=== PATIENT | female | born 1940 | race Caucasian/White ===

== ENCOUNTER 2020-03-21 14:33 | Emergency (ER) | payer MEDICARE, BC ==
--- NOTE | 2020-03-21 15:20 | ER Document Report ---
ED General - General Chief Complaint: Shortness Of Breath Stated Complaint: SHORTNESS OF BREATH Time Seen by Provider: 03/21/20 14:40 Notes: HPI: 79-year-old female with past medical history including non-Hodgkin's lymphoma and myelodysplastic disease followed at [facility] recently discharged from [facility] with a pericardial window performed on March 09 who states some worsening shortness of breath over the last few m onths with some decreased energy and appetite over the last 2 to 3 days. No fevers, vomiting, abdominal pain, chest pain, calf pain or leg swelling. She is on baseline oxygen. ROS: See HPI All other review of systems reviewed and otherwise negative Reviewed vital signs and nursing note as charted by RN. PHYSICAL EXAM: CONSTITUTIONAL: Alert and oriented and responds appropriately to questions. Well-appearing; well-nourished HEAD: Normocephalic; atraumatic EYES: PERRL; Conjunctivae clear, sclerae non-icteric ENT: Normal nose; no rhinorrhea; moist mucous membranes; pharynx without lesions noted NECK: Supple without meningismus; non-tender; no cervical lymphadenopathy, no masses CARD: Regular rate and rhythm; no murmurs; symmetric distal pulses RESP: Normal chest excursion without splinting or tachypnea; decreased breath sounds to the left lung field without any obvious wheezing or rhonchi appreciated ABD/GI: Normal bowel sounds; non-distended; soft, non-tender; no palpable organomegaly or masses BACK: The back appears normal and is non-tender to palpation EXT: Normal ROM in all joints; non-tender to palpation; no edema SKIN: No acute lesions noted NEURO: CN 2-12 intact; 5/5 bilateral upper and lower extremity strength with sensation intact to light touch PSYCH: The patient's mood and manner are appropriate. Grooming and personal hygiene are appropriate. - Related Data Allergies/Adverse Reactions: ampicillin Allergy (Verified 03/21/20 15:27) Past Medical History - Social History Smoking Status: Unknown if Ever Smoked Family History: Reviewed & Not Pertinent Physical Exam - Vital signs Vitals: Pulse Ox 96 03/21/20 15:15 Course - Re-evaluation Re-evalutation: Given the above history and physical examination, we did order a portable x-ray of the chest showing almost complete whiteout of the left lung. Blood pressure and oxygenation are stable on nasal cannula. I will proceed with a CTA as well as a cardiac evaluation. Patient has had no fevers, calf pain or leg swelling. She denies any pain to the chest or abdomen. Concern about metastatic disease causing a neoplastic effusion. 03/21/20 15:24 EKG shows a heart of 94, normal sinus rhythm, left anterior fascicular block, incomplete left bundle branch block with inverted T waves in leads I, aVL, and V2. no old EKG to compare. 03/21/20 15:58 White blood cell count is over 100,000. I have called [facility] to help facilitate transfer. That is where her oncologist is located and that is where her recent pericardial effusion has been performed. She does see [facility] secondary to the 2 different types of cancers but only sees them twice a year. That is not her active oncologist. 03/21/20 16:18 I have called [facility]. They are currently on diversion. I am trying to get 1 of the providers to call me back to discuss the patient's hospital course. I have not yet heard. I did call and speak to a local oncologist here. He states that he would like the patient ideally to be replaced that has the ability for plasmapheresis given the complicated cancer history. He states if we are not able to find an acceptance at [facility] or [facility] he is happy to have the hospitalist consult him here. We do have pulmonology motion picture cameraman. Radiology is able to drain the patient's lung through interventional radiology if needed. 03/21/20 16:24 I did call [facility] to attempt to have the patient transferred to that location. They did state that the patient's last white blood cell count was in July 16 showing a white blood cell count of 37,000. 03/21/20 17:12 I spoke to the oncology fellow at [facility]. [facility] states they are attempting to make a bed. She has had me add on multiple laboratory values which I placed in the computer. No change in exam. Patient has yet to have a CT scan given the colon volume of the emergency department. 03/21/20 18:04 I have spoken to the hematology/oncology fellow once again. She has asked me to order a repeat 8-hour BMP, magnesium, phosphorus, LDH, and coags. She is also had me start hydroxyurea and allopurinol. They have accepted the patient for transfer. Patient has just returned from CT scan. - Vital Signs Vital signs: Temp Pulse Resp BP Pulse Ox 96 03/21/20 15:15 - Laboratory Result Diagrams: 03/21/20 15:00 03/21/20 15:00 Laboratory results interpreted by me: 03/21/20 03/21/20 03/21/20 15:00 15:00 15:00 WBC 126.1 H* RBC 2.62 L Hgb 9.0 L Hct 28.5 L MCV 109 H MCH 34.6 H MCHC 31.7 L RDW 19.2 H Band Neutrophils % 7 H Lymphocytes % (Manual) 10 L Monocytes % (Manual) 2 L Myelocytes % 2 H Immature Leukocytes % 7 H Abs Neuts (Manual) 100.9 H Abs Lymphs (Manual) 12.6 H Abs Monocytes (Manual) 2.5 H Absolute Eos (Manual) 1.3 H Fibrinogen Sodium 131.9 L BUN 44 H Uric Acid 9.9 H Direct Bilirubin 0.6 H Alkaline Phosphatase 448 H Lactate Dehydrogenase 337 H Albumin 3.1 L 03/21/20 15:00 WBC RBC Hgb Hct MCV MCH MCHC RDW Band Neutrophils % Lymphocytes % (Manual) Monocytes % (Manual) Myelocytes % Immature Leukocytes % Abs Neuts (Manual) Abs Lymphs (Manual) Abs Monocytes (Manual) Absolute Eos (Manual) Fibrinogen 504 H Sodium BUN Uric Acid Direct Bilirubin Alkaline Phosphatase Lactate Dehydrogenase Albumin Critical Care Note - Critical Care Note Total time excluding time spent on procedures (mins): 35 Discharge - Discharge Clinical Impression: Pleural effusion, left, Hypoxia, Neutrophilic leukocytosis Condition: Serious Disposition: [place]
--- NOTE | 2020-03-21 15:20 | RADIOLOGY REPORT (SQ) ---
EXAM DESCRIPTION: CHEST SINGLE VIEW IMAGES COMPLETED DATE/TIME: 03/21/2020 3:04 pm REASON FOR STUDY: bed 1 difficulty breathing COMPARISON: None. EXAM PARAMETERS: NUMBER OF VIEWS: One view. TECHNIQUE: Single frontal radiographic view of the chest acquired. RADIATION DOSE: NA LIMITATIONS: None. FINDINGS: LUNGS AND PLEURA: Very large left pleural effusion. Compressive atelectasis of the left l sepideh. Right lung is clear. MEDIASTINUM AND HILAR STRUCTURES: No masses. Contour normal. HEART AND VASCULAR STRUCTURES: Heart size indeterminate. BONES: Scoliosis. HARDWARE: None in the chest. OTHER: No other significant finding. IMPRESSION: Very large left pleural effusion with compressive atelectasis the left lung. TECHNICAL DOCUMENTATION: JOB ID: [id number] 2010 [employer]- All Rights Reserved Reading location - IP/workstation name: [email or web address]
[2020-03-21 15:26] LABS: HEMATOCRIT 28.5 % (36.0-47.0); MEAN CORPUSCULAR HEMOGLOBIN 34.6 pg (27.0-33.4); MEAN CORPUSCULAR HGB CONC 31.7 g/dL (32.0-36.0); MEAN CORPUSCULAR VOLUME 109 fl (80-97); PLATELET COUNT 310 10^3/uL (150-450); RED BLOOD COUNT 2.62 10^6/uL (3.72-5.28); RED CELL DISTRIBUTION WIDTH 19.2 % (11.5-14.0)
[2020-03-21 15:39] LABS: ALBUMIN 3.1 g/dL (3.5-5.0); ALKALINE PHOSPHATASE 448 U/L (38-126); ANION GAP 7 (5-19); ASPARTATE AMINO TRANSFERASE 29 U/L (14-36); BILIRUBIN,DIRECT 0.6 mg/dL (0.0-0.4); BLOOD UREA NITROGEN 44 mg/dL (7-20); CALCIUM 8.7 mg/dL (8.4-10.2); CARBON DIOXIDE 25 mmol/L (22-30); CHLORIDE 100 mmol/L (98-107); GLUCOSE 107 mg/dL (75-110); TOTAL PROTEIN 6.5 g/dL (6.3-8.2)
[2020-03-21 15:58] LABS: ABSOLUTE LYMPHOCYTES# (MANUAL) 12.6 10^3/uL (0.5-4.7); ABSOLUTE MONOCYTES # (MANUAL) 2.5 10^3/uL (0.1-1.4); BAND NEUTROPHILS % (MANUAL) 7 % (3-5); BASOPHILS % (MANUAL) 0 % (0-2); EOSINOPHILS % (MANUAL) 1 % (0-6); LYMPHOCYTES % (MANUAL) 10 % (13-45); MONOCYTES % (MANUAL) 2 % (3-13); MYELOCYTES % (MANUAL) 2 % (0); NUCLEATED RED BLOOD CELLS 1 /100 WBC (0); SEGMENTED NEUTROPHILS % (MAN) 71 % (42-78); TOTAL CELLS COUNTED 100
[2020-03-21 16:01] LABS: ANISOCYTOSIS 2+; OVALOCYTES SLIGHT; PLATELET COMMENT ADEQUATE; TOXIC GRANULATION 1+
[2020-03-21 16:03] LABS: IMMATURE MONONUCLEAR% (MANUAL) 7 % (0)
[2020-03-21 17:26] LABS: URIC ACID 9.9 mg/dL (2.5-7.5)
[2020-03-21 17:31] LABS: FIBRINOGEN 504 mg/dL (209-497); INTERNATIONAL RATION (INR) 1.05; PROTHROMBIN TIME 13.9 SEC (11.4-15.4)
[2020-03-21] MEDS ORDERED: HYDROXYUREA 500 MG CAPSULE PO SCH (18:00)
[2020-03-21] MEDS ORDERED: ALLOPURINOL 300 MG TABLET PO SCH (18:00)
[2020-03-21 18:25] LABS: APPEARANCE,URINE SLIGHTLY-CLOUDY; BILIRUBIN,URINE NEGATIVE (NEGATIVE); COLOR,URINE YELLOW; GLUCOSE, URINE NEGATIVE (NEGATIVE); KETONES,URINE NEGATIVE (NEGATIVE); LEUKOCYTE ESTERASE,URINE MODERATE (NEGATIVE); NITRITE,URINE POSITIVE (NEGATIVE); PROTEIN,URINE 30 mg/dL (NEGATIVE)
--- NOTE | 2020-03-21 18:27 | RADIOLOGY REPORT (SQ) ---
EXAM DESCRIPTION: CTA CHEST IMAGES COMPLETED DATE/TIME: 03/21/2020 6:01 pm REASON FOR STUDY: 1; left lung effusion? Recent pericardial window; COMPARISON: Chest radiograph 03/21/2020 TECHNIQUE: CT scan of the chest performed using helical scanning technique with dynamic intravenous contrast injection. Images reviewed with lung, soft tissue and bone windows. Reconstructed coronal and sagittal MPR images reviewed. Additional 3 dimensional post-processing performed to develop Maximal Intensity Projection images (RI P). All images stored on PACS. All CT scanners at this facility use dose modulation, iterative reconstruction, and/or weight based d osing when appropriate to reduce radiation dose to as low as reasonably achievable (ALARA). [facility]: Dose Right [facility]: CareDose [facility]: Dose Right [facility]: Teradose 4D [facility]: [employer] CONTRAST TYPE AND DOSE: contrast/concentration: Isovue 350.00 mmol/ml; Total Contrast Delivered: 50. 0 ml; Total Saline Delivered: 76.0 ml Contrast bolus optimized for the pulmonary arteries. Not diagnostic for the aorta. RENAL FUNCTION: BUN 44; creatinine 0.67 RADIATION DOSE: CT Rad equipment meets quality standard of care and radiation dose reduction techniq ues were employed. CTDIvol: 3.3 - 14.3 mGy. DLP: 531 mGy-cm. . LIMITATIONS: None. FINDINGS: LUNGS AND PLEURA: A large left pleural effusion is present. There is associated collapse of the left lower lobe with preservation of the left lung apex. The right lung is clear. AORTA AND GREAT VESSELS: No thoracic aortic aneurysm. Moderate calcifications of the thoracic aortic arch are present. HEART: Evaluation for pericardial effusion is limited in the presence of the large left pleural effus ion. Moderate aortic valvular and coronary artery calcifications are present. PULMONARY ARTERIES: No emboli visualized in the main pulmonary arteries or the segmental branches. HILAR AND MEDIASTINAL STRUCTURES: No identified masses or abnormal nodes. HARDWARE: None in the chest. UPPER ABDOMEN: No significant findings. Limited exam. THYROID AND OTHER SOFT TISSUES: No masses. No adenopathy. BONES: No acute or significant finding. 3D MIPS: Confirm above findings. OTHER: No other significant finding. IMPRESSION: No pulmonary embolus. Large left pleural effusion with atelectasis of the left lung sparing the left lung apex. COMMENT: Quality ID # [id number]: Final reports with documentation of one or more dose reduction techniques (e.g., Automated exposure control, adjustment of the mA and/or kV according to patient size, use of iterative reconstruction technique) TECHNICAL DOCUMENTATION: JOB ID: [id number] 2010 [employer]- All Rights Reserved Reading location - IP/workstation name: [email or web address]
--- NOTE | 2020-03-21 20:26 | EKG REPORT ---
SEVERITY:- ABNORMAL ECG - SINUS RHYTHM LEFT ANTERIOR FASCICULAR BLOCK ABNRM R PROG, CONSIDER ASMI OR LEAD PLACEMENT ABNORMAL T, CONSIDER ISCHEMIA, LATERAL LEADS : Confirmed by: Douglas Bran 21-Mar-2020 20:25:25
--- NOTE | 2020-03-21 20:41 | ER Document Report ---
Doctor's Note Notes: 03/21/20 20:35 Patient was endorsed to this MD by Dr. Rivera at 2010 hrs. This MD received a phone call from [facility] transfer center at 2825 hours. The heme onc fellow, Dr. Arnel Leyva spoke with this MD to see how the patient was currently doing. This MD obtained the fellow on the patient's vital signs and visualize the patient. The patient currently seems to be in no acute distress. The fellow stated that there is going to be a delay on the bed and asked if the patient had any hydroxyurea prescribed to her. This MD check with the patient and the patient stated that she did not have any prescribed to her. The fellow recommended that the patient be given 2 g of hydroxyurea if possible. Apparently we do not have access to hydroxyurea at this time. This MD will check in today possibility of obtaining some through the [facility]. 03/21/20 22:54 Unable to obtain any hydroxyurea from pharmacy. However at this time, the patient's transport team is here to take patient to [place]. They have a bed available. This MD went to the patient's bedside to reevaluate her prior to discharge. Patient has a heart rate of 96, O2 sats 94% on 4 L, respirations 27, blood pressure 130/56. She is in good spirits and appears stable for transport.
[2020-03-21 22:48] VITALS: BP 130/56
[2020-03-22 11:46] LABS: WHITE BLOOD COUNT 126.1 10^3/uL (4.0-10.5)
[2020-03-22 14:15] LABS: PATH REVIEW PATHOLOGIST REVIEWED
== END 2020-03-21 23:12 | disposition short-term general hospital (02) ==
LOC: ER 14:33
DX: J90 Pleural effusion, not elsewhere classified (principal); R09.02 Hypoxemia; D72.828 Other elevated white blood cell count; R06.02 Shortness of breath; Z85.72 Personal history of non-Hodgkin lymphomas
CPT/HCPCS: 93005; 99291; 36415; 87040; 83615; 83735; 84100; 84550; 85025; 85384; 85610; 87077; 80053; 81001; 84484; 87150 ×26; 71045; 71275; 93010; A9270